=== PATIENT | female | born 1975 | race Two or more races ===

== ENCOUNTER 2022-09-25 06:30 | Day surgery (SDC) | payer OTHER ==
[~2022-09-25] VITALS: Ht 162.6 cm; Wt 129.7 kg
[2022-09-25] MEDS ORDERED: NEURONTIN300 MG PO (08:52)
[2022-09-25] MEDS ORDERED: PERCOCET 5-3251 EACH PO (08:52)
[2022-09-25] MEDS ORDERED: DERMOPLAST PAIN78 GM TOP (08:56)
[2022-09-25] MEDS ORDERED: NUPERCAINAL56.7 GM UR (08:57)
== END 2022-09-25 16:35 | disposition home or self-care (01) ==
LOC: CIR.AMB 06:30
PROVIDERS: ATTEND Surgery
DX: K64.2 Third degree hemorrhoids (principal); K62.2 Anal prolapse; Z88.0 Allergy status to penicillin; Z88.6 Allergy status to analgesic agent; Z20.822 Contact with and (suspected) exposure to COVID-19; E11.9 Type 2 diabetes mellitus without complications